=== PATIENT | male | born 1980 | race Caucasian/White ===

== ENCOUNTER → 2023-10-19 20:41 | Outpatient (REF) | payer OTHER, SELFPAY | LOC: MRI 3T 20:41 | PROVIDERS: ATTENDING PHYSICIAN Anesthesiology Pain Medicine; FAMILY PHYSICIAN Family Medicine | DX: M54.16 Radiculopathy, lumbar region (principal) | CPT/HCPCS: 72148 ==

== ENCOUNTER 2025-05-17 14:39 | Day surgery (SDC) | payer OTHER, SELFPAY ==
[2025-05-17] VITALS (11 sets, daily range): BP systolic 104–130; BP diastolic 53–94; BMI 35.8
[2025-05-17 10:11] LABS: Hematocrit 43.3 % (39.0-52.0); Hemoglobin 14.6 g/dL (13.0-18.0); Mean Corp Hgb Conc. 33.7 g/dL (33.0-37.0); Mean Corpuscular Volume 83.8 fL (80.0-94.0); Nucleated Red Blood Cells % 0 % (-); Platelet Count 270 10^3/uL (130-400); Red Cell Dist. Width 12.6 % (11.5-14.5)
[2025-05-17 10:24] LABS: ALT (SGPT) 22 U/L (0-50); AST (SGOT) 21 U/L (17-59); Albumin 4.6 g/dl (3.5-5.0); Alkaline Phosphatase 59 U/L (38-126); Blood Urea Nitrogen 16 mg/dl (9-20); Calcium 9.4 mg/dl (8.4-10.2); Carbon Dioxide 22 mmol/L (22-30); Chloride 105 mmol/L (98-107); Glucose 109 mg/dl (70-99); Lipase 39 U/L (23-300); Potassium 4.2 mmol/L (3.5-5.1); Sodium 136 mmol/L (135-145); Total Protein 7.7 g/dl (6.3-8.2); eGFR > 60.00
--- NOTE | 2025-05-17 11:15 | ED.GENMED ---
History of Present Illness
General
Chief Complaint: Abdominal Pain
Source: patient and spouse
Exam Limitations: none
Time Seen by Provider: 05/17/25 10:54
Nursing documentation reviewed up to this point in time: agreed with
History of Present Illness
History of Present Illness:
45-year-old male limited past medical history 1 to 2 days of abdominal pain lower right greater than left nausea vomiting with bloody stools no sick contacts no foreign travel no raw or undercooked foods, family history of diverticulosis has not yet
had a colonoscopy though he states he is due,
Past History
Past History
ED Past Medical History: None
ED Past Surgical History: None
Social History
Tobacco: Non-smoker
Alcohol: Occasional
Drug: None
Personal:
Living: with family
Employment: Employed
Family History
Family History: Other (Diverticulosis)
Review of Systems
Review of Systems
All Other Systems: Not applicable
Constitutional: Denies fever or fatigue
Respiratory: Reports no symptoms
Cardiac: Reports no symptoms
ABD/GI: Reports abdominal pain, nausea, vomiting, diarrhea, bloody stools, anorexia and pain; Denies black stools
: Reports no symptoms
Musculoskeletal: Reports no symptoms
Skin: Reports no symptoms
Neurological: Reports no symptoms
Endocrine: Reports no symptoms
Phy Exam
Physical Exam
Physical Exam:
Physical Exam
General: Uncomfortable but nontoxic-appearing male
Neck: Without jaundice
Heart: s1/s2 regular rate and rhythm, no murmur. equal radial pulses.
Lungs: no acute respiratory distress. clear bilaterally
Abdomen: Tender right greater than left lower abdomen
Neuro: alert and oriented. no focal neurological deficits
Skin: no rash
Psychiatric: well kept. interactive and cooperative
Extremities: no edema.
Course
Orders/Labs/Results
Orders:
Orders
05/17/25 09:54
Complete Blood Count/With Diff Urgent
Comprehensive Metabolic Panel Urgent
Lipase Urgent
05/17/25 11:07
CT Abd/Pel (IV only)-DH only Urgent
Comment:
Reason For Exam: pain
0.9% Sodium Chloride 1000 ml [Nss] 1,000 ml IV BOLUS
HYDROmorphone [Dilaudid] 1 mg IV NOW STA
Ondansetron Injectable [Zofran] 4 mg IV NOW STA
05/17/25 13:17
HYDROmorphone [Dilaudid] 1 mg IV NOW STA
Ondansetron Injectable [Zofran] 4 mg IV NOW STA
Abnormal Lab Results
05/17/25
09:54
WBC 16.1 H 10^3/uL
(4.8-10.8)
Abs Immat Gran (auto) 0.1 H 10^3/uL
(0-0.05)
Absolute Neuts (auto) 13.8 H 10^3/uL
(1.4-6.5)
Absolute Monos (auto) 0.8 H 10^3/uL
(0.1-0.6)
Neutrophils % 85.8 H %
(42.2-75.2)
Lymphocytes % 7.9 L %
(20.5-51.1)
Glucose 109 H mg/dl
(70-99)
05/17/25 09:54
05/17/25 09:54
Vital Signs
Initial and Last Documented VS:
Initial Vital Signs
Temp Pulse Resp BP Pulse Ox
97.7 F 69 18 130/94 100
05/17/25 09:48 05/17/25 09:48 05/17/25 09:48 05/17/25 09:48 05/17/25 09:48
Last Documented Vital Signs
Temp Pulse Resp BP Pulse Ox
97.7 F 68 16 113/61 96
05/17/25 09:48 05/17/25 13:01 05/17/25 13:01 05/17/25 13:01 05/17/25 13:01
MDM/Problems Addressed
Differential Diagnosis Includes:
Diverticulitis appendicitis enteritis
MDM/Problems Addressed:
Abdominal pain nausea vomiting diarrhea
*Radiology
Radiology exam reviewed: radiology read reviewed
*Pulse Oximetry
SaO2: 100
Oxygen Mode of Delivery: Room air
Patient hypoxic: no
*Critical Care Note
Total Time (30-74mins, 75-104mins- exclusive of procedures): Not Applicable
Update Note
Update Note:
1:[address] noted reviewed with patient and spouse message sent to on-call surgeon
ED Attending Note
-
Portions of this chart may have been created with voice recognition software.� Occasional wrong word or��sound alike� substitutions may have occurred due to the inherent limitations of voice recognition software.
Discharge Plan
Departure
Patient Disposition: Admit
Date of Disposition: 05/17/25
Time of Disposition: 13:17
Admit to: OR
Admit to doctor: Yordy
Presentation/result/management discussed w/ accepting MD/DO: Surgery Dr. Scales
Condition: Good
Discharge Problem:
Acute appendicitis
Prescriptions:
No Action
acetaminophen 325 MG tablet
650 mg PO
ibuprofen 600 MG tablet
600 mg PO
multivitamin with folic acid [Tab-A-Tc] 1 TABLET tablet
1 tab PO DAILY
No Meds [No Current Medications]
0
doxycycline hyclate 100 MG capsule
100 mg PO Q12 Qty: 40 0RF
Referrals:
João De Leon MD [Family Provider, Family Practice]
Interventions
Interventions:
*Risk Screen - Suicide Last Done: 05/17/25 09:48
*General Assessment Last Done: 05/17/25 09:48
*Neglect/Abuse Screening Last Done: 05/17/25 11:27
*ED- Fall Risk Assessment Last Done: 05/17/25 11:27
*ED COVID-19 Vaccine History Last Done: 05/17/25 11:27
*ED Influenza Vaccine History Last Done: 05/17/25 11:27
CX-Ddjyhq-Zurxxcxwcg Assessment Last Done: 05/17/25 11:29
Discharge Date and Time
Print Language: ESTONIAN
[2025-05-17] MEDS: NSS 1000 IV ×2 (11:24→16:59)
[2025-05-17] MEDS: ZOFRAN 4 MG IV ×2 (11:24→13:21)
[2025-05-17] MEDS: DILAUDID 1 MG IV ×2 (11:25→13:23)
--- NOTE | 2025-05-17 13:53 | HPS.HSE ---
Family Physician
-
Family Physician: João De Leon
Chief Complaint
-
Abdominal pain
History of Present Illness
45-year-old healthy male who presents to the ED with progressive abdominal pain. Began yesterday morning and became worse this morning. The pain is localized to right lower quadrant and lower abdomen. The pain is sharp. He denies any fevers or
chills. He has some nausea and vomiting earlier and his stools have been loose.
Medical History
Past Medical History
Past Medical History: Reports None
Past Surgical History: Reports None
Social History
Tobacco: Non-smoker
Alcohol: Occasional
Personal:
Living: With Family
Employment: Employed
Family History
Family History: Not pertinent
Allergies / Home Medications
Allergies reflects when Allergies were last updated in [facility].
Home Medications with original date entered in [facility]
Allergy/Medication List:
Medications: none
NKDA
Review of Systems
-
A 12 point ROS was completed and negative except as noted: Yes
Physical Exam
Vital Signs
Vital Signs
Temp Pulse Resp BP Pulse Ox
97.7 F 68 16 113/61 96
05/17/25 09:48 05/17/25 13:01 05/17/25 13:01 05/17/25 13:01 05/17/25 13:01
Physical Exam
General: Well Developed, Well Nourished and No Apparent Distress
HEENT: Anicteric
Respiratory: Clear
Cardiac: Regular Rhythm
GI: Soft, Non Distended and Tender (Right lower quadrant with guarding)
Genito-urinary: No costovertebral tender
Musculoskeletal: No Edema
Neuro: Awake, Alert and Oriented
Laboratory Results
-
05/17/25 09:54
05/17/25 09:54
Laboratory Results
Total Bilirubin 1.2 mg/dl (0.2-1.3) 05/17/25 09:54
AST 21 U/L (17-59) 05/17/25 09:54
ALT 22 U/L (0-50) 05/17/25 09:54
Alkaline Phosphatase 59 U/L (38-126) 05/17/25 09:54
Lipase 39 U/L (23-300) 05/17/25 09:54
Data Reviewed
-
CT Scan: Image Personally Visualized and interpreted, Report Reviewed by me, Discussed with Physician, Discussed with Patient and Discussed with Family
Lab Data: Labs Reviewed by me, Discussed with Patient and Discussed with Family
Impression/Plan
-
IMPRESSION: Acute appendicitis
PLAN: I reviewed the current findings with the patient and his and discussed the treatment options with the risks and benefits of each. Options include nonoperative management with antibiotics with the risks of worsening infection, abscess,
perforation, and recurrence. Risks of surgery include, but are not limited to, bleeding, infection, fistula, injury other structures, DVT, hernias, cardiopulmonary complications, and the risks of anesthesia. We discussed both open and laparoscopic
surgery as well as the typical recovery. All questions answered and they wish to proceed with a laparoscopic appendectomy. Arrangements are in progress for the operating room.
--- NOTE | 2025-05-17 16:12 | W.IMMPOSTOP ---
Surgical Immed Post Op Note
-
Primary Surgeon: Rufino Scales MD
Agricultural Consultant: NAEL Lara
Pre-op Diagnosis: Acute appendicitis
Post-op Diagnosis: Same
Procedure Performed: Laparoscopic appendectomy
Anesthesia Type: GET
Specimen / Cultures: Appendix
Estimated Blood Loss: 7cc
Complications: None
Operative Findings: Acutely inflamed,non-perforated appendicitis
Patient's family updated.
--- NOTE | 2025-05-17 17:07 | PTCARENOTE ---
Telephone report received from [employer] Lyman including patient on 4L and will scan ordered IVF of NSS @80 before bringing patient to floor; patient arrived in bed on 4L O2 @17:07 with IVF scanned and infusing; VSS; admission questions obtained at
bedside.
[2025-05-17] MEDS: TORADOL 10 MG IV (20:10)
[2025-05-18 03:10] VITALS: BP 110/63
[2025-05-18] MEDS: NSS 1000 IV (04:36)
[2025-05-18 06:44] VITALS: BP 106/60
[2025-05-18] MEDS: TORADOL 10 MG IV (08:28)
--- NOTE | 2025-05-18 08:47 | CM ---
Cm met with patient in room. Patient confirmed demographics. Patient lives with . Patient is independent with needs. Patient is active with his PCP.
PLAN: Home no needs noted.
--- NOTE | 2025-05-18 10:42 | W.PN.CRS1 ---
Today's Communication / Plan
-
discharge
Assessment/Plan
-
POD#1 laproscopic appendectomy
-Vitals normal. WBC 16.1, as expected.
-OOB as tolerated
-Continue a regular diet
-Voiding without difficulty
-Okay for discharge today. All discharge instructions discussed with patient including medications, activity levels, and follow up. All questions addressed.
Subjective Data
Procedure
05/17/2025- Laparoscopic appendectomy
Subjective Data
Date of Service: May 18, 2025
Patient states he feels well. He denies nausea or vomiting. His pain is controlled. He is tolerating diet. He is looking forward to going home.
Objective Data
-
Vital Signs
Temp Pulse Resp BP Pulse Ox
98.1 F 63 14 106/60 93
05/18/25 06:44 05/18/25 06:44 05/18/25 06:44 05/18/25 06:44 05/18/25 06:44
Intake & Output
05/17/25 05/18/25 05/19/25
06:59 06:59 06:59
Intake Total 1620 / 1620
Output Total 400 / 400
Balance 1220 / 1220
Intake:
Oral fluids 480 / 480
IV fluids (Total) 1140 / 1140
Normosol 100 / 100
Output:
Urine, [place] 400 / 400
Other:
Number of approximated MODERATE 2
amounts of urine
Lab Results
05/17/25 09:54
05/17/25 09:54
Physical Exam
-
General: No Acute Distress and AOx3
Abdomen: Soft, Non Distended and Non Tender
Skin: Warm and Dry
Incision: Clear, Dry, Intact
[2025-05-18 11:00] VITALS: BP 111/63
== END 2025-05-18 13:02 | disposition home or self-care (01) ==
LOC: PACU 14:39
PROVIDERS: Student in an Organized Health Care Education/Training Program; ATTENDING PHYSICIAN Surgery; EMERGENCY PHYSICIAN Emergency Medicine; FAMILY PHYSICIAN Family Medicine
DX: K35.80 Unspecified acute appendicitis (principal)
CPT/HCPCS: 44970; 74177; 80053; 83690; 85025; 88304; 96361; 96374; 96375; 96376; 99285; J1335; Q9967

== ENCOUNTER 2025-06-23 06:13 | Day surgery (SDC) | payer OTHER, SELFPAY | END 2025-06-23 15:14 | disposition home or self-care (01) | LOC: GI 06:13 | PROVIDERS: ATTENDING PHYSICIAN Surgery | DX: Z12.11 Encounter for screening for malignant neoplasm of colon (principal); D12.3 Benign neoplasm of transverse colon; D12.5 Benign neoplasm of sigmoid colon | CPT/HCPCS: 45380; 88305 ==